=== PATIENT | female | born 1960 | race Caucasian/White ===

== ENCOUNTER 2018-02-26 09:13 | Day surgery (SDC) | payer MEDICAID ==
[2018-02-26] MEDS ORDERED: PROPOFOL 40 ML (10:49)
== END 2018-02-26 16:29 | disposition home or self-care (01) ==
LOC: GIL 09:13
DX: K29.60 Other gastritis without bleeding (principal); I10 Essential (primary) hypertension
CPT/HCPCS: 43239; 88305; 88312